=== PATIENT | male | born 1955 | race Caucasian/White ===

== ENCOUNTER 2019-05-14 11:59 | Emergency (ER) | payer OTHER ==
[~2019-05-14] VITALS: Ht 175.3 cm; Wt 90.7 kg
[~2019-05-14 11:59] MED LIST: ALPR.25 PO; ASPI81CH PO; ATOR80 PO; METO50ER PO; TICA90TA PO
[2019-05-14] MEDS ORDERED: CLON.1 PO (12:35)
[2019-05-14] MEDS ORDERED: LOSA25 PO (12:36)
[2019-05-14 12:40] LABS: BASOPHILS ABSOLUTE AUTO 0.04 K/mm3 (0.00-0.23); BASOPHILS PERCENT AUTO 1 % (0-2); EOSINOPHILS ABSOLUTE AUTO 0.05 K/mm3 (0.00-0.68); EOSINOPHILS PERCENT AUTO 1 % (0-6); Hematocrit 47.4 % (37.0-53.0); Hemoglobin 15.9 g/dL (13.5-17.5); IMMATURE GRAN ABSOLUTE AUTO 0.02 K/mm3 (0.00-0.10); IMMATURE GRAN PERCENT AUTO 0 % (0-1); LYMPHOCYTES ABSOLUTE AUTO 1.21 K/mm3 (0.84-5.20); LYMPHOCYTES PERCENT AUTO 14 % (21-46); MONOCYTES ABSOLUTE AUTO 0.47 K/mm3 (0.16-1.47); MONOCYTES PERCENT AUTO 5 % (4-13); Mean Corpuscular HGB 30.1 pg (26.0-34.0); Mean Corpuscular HGB Conc 33.5 g/dL (31.5-36.5); Mean Corpuscular Volume 90 fL (80-100); Mean Platelet Volume 10.6 fL (9.1-12.4); NEUTROPHILS ABSOLUTE AUTO 7.02 K/mm3 (1.96-9.15); NEUTROPHILS PERCENT AUTO 80 % (41-73); Platelet Count 246 K/mm3 (150-400); RDW Standard Deviation 45.7 fL (35.1-46.3); Red Blood Cell Count 5.29 M/mm3 (4.30-5.90); White Blood Cell Count 8.81 K/mm3 (4.00-11.30)
[2019-05-14 13:01] LABS: Alanine Aminotransfer (ALT/SGP 23 U/L (12-78); Albumin, Blood 4.2 g/dL (3.4-5.0); Albumin/Globulin Ratio 1.4 (0.8-1.8); Alk Phos 77 U/L (50-136); Anion Gap 5 mmol/L (6-16); Aspartate Aminotrans (AST/SGOT 14 U/L (12-37); Bilirubin, Total 0.9 mg/dL (0.1-1.0); Blood Urea Nitrogen 22 mg/dL (8-24); Bun/Creatinine Ratio 18.6 (12.0-20.0); CO2, Blood 22 mmol/L (21-32); Calcium, Blood 8.7 mg/dL (8.5-10.1); Chloride, Blood 111 mmol/L (98-108); Creatinine, Blood 1.18 mg/dL (0.60-1.20); Globulin, Blood 3.1 g/dL (2.2-4.0); Glomerular Filtration Rate >60 (60-); Glucose, Blood 134 mg/dL (70-99); Potassium, Blood 4.3 mmol/L (3.5-5.5); Sodium, Blood 138 mmol/L (136-145); Total Protein, Blood 7.3 g/dL (6.4-8.2)
[2019-05-14 13:02] LABS: Troponin I <0.015 ng/mL (0.000-0.040)
== END 2019-05-14 14:16 | disposition home or self-care (01) ==
LOC: ER 11:59
PROVIDERS: Physician Assistant
DX: I48.91 Unspecified atrial fibrillation (principal); Z79.899 Other long term (current) drug therapy; Z79.82 Long term (current) use of aspirin
CPT/HCPCS: 36415; 80053; 84443; 84484; 85025; 93005; 93010; 99284-25

== ENCOUNTER 2020-10-26 12:29 | Emergency (ER) | payer OTHER ==
[~2020-10-26] VITALS: Ht 175.3 cm; Wt 99.8 kg
[~2020-10-26 12:29] MED LIST changes: +CLON.1 PO; +LOSA25 PO
[2020-10-26] MEDS ORDERED: ELIQUIS5 M2 PO (12:43)
[2020-10-26] MEDS ORDERED: IRBESARTAN150 M2 PO (12:44)
[2020-10-26 12:48] LABS: BASOPHILS ABSOLUTE AUTO 0.02 K/mm3 (0.00-0.23); BASOPHILS PERCENT AUTO 0 % (0-2); EOSINOPHILS ABSOLUTE AUTO 0.03 K/mm3 (0.00-0.68); EOSINOPHILS PERCENT AUTO 0 % (0-6); Hematocrit 46.2 % (37.0-53.0); Hemoglobin 15.9 g/dL (13.5-17.5); IMMATURE GRAN ABSOLUTE AUTO 0.02 K/mm3 (0.00-0.10); IMMATURE GRAN PERCENT AUTO 0 % (0-1); LYMPHOCYTES ABSOLUTE AUTO 1.05 K/mm3 (0.84-5.20); LYMPHOCYTES PERCENT AUTO 13 % (21-46); MONOCYTES ABSOLUTE AUTO 0.46 K/mm3 (0.16-1.47); MONOCYTES PERCENT AUTO 6 % (4-13); Mean Corpuscular HGB 29.9 pg (26.0-34.0); Mean Corpuscular HGB Conc 34.4 g/dL (31.5-36.5); Mean Corpuscular Volume 87 fL (80-100); Mean Platelet Volume 10.6 fL (9.1-12.4); NEUTROPHILS PERCENT AUTO 81 % (41-73); Platelet Count 173 K/mm3 (150-400); RDW Coefficient Variation 13.2 % (11.7-14.2); RDW Standard Deviation 42.1 fL (35.1-46.3); Red Blood Cell Count 5.31 M/mm3 (4.30-5.90); White Blood Cell Count 8.08 K/mm3 (4.00-11.30)
[2020-10-26 13:03] LABS: Alanine Aminotransfer (ALT/SGP 19 U/L (12-78); Albumin/Globulin Ratio 1.2 (0.8-1.8); Alk Phos 66 U/L (50-136); Anion Gap 8 mmol/L (6-16); Aspartate Aminotrans (AST/SGOT 16 U/L (12-37); Bilirubin, Total 1.4 mg/dL (0.1-1.0); Blood Urea Nitrogen 19 mg/dL (8-24); CO2, Blood 21 mmol/L (21-32); Calcium, Blood 9.4 mg/dL (8.5-10.1); Chloride, Blood 111 mmol/L (98-108); Creatinine, Blood 1.19 mg/dL (0.60-1.20); Globulin, Blood 3.2 g/dL (2.2-4.0); Glomerular Filtration Rate >60 (60-); Glucose, Blood 161 mg/dL (70-99); Potassium, Blood 4.2 mmol/L (3.5-5.5); Sodium, Blood 140 mmol/L (136-145); Total Protein, Blood 7.2 g/dL (6.4-8.2); Troponin I <0.015 ng/mL (0.000-0.040)
== END 2020-10-26 17:04 | disposition home or self-care (01) ==
LOC: ER 12:29
PROVIDERS: Emergency Medicine
DX: I24.9 Acute ischemic heart disease, unspecified (principal); Z53.20 Procedure and treatment not carried out because of patient's decision for unspecified reasons; Z79.01 Long term (current) use of anticoagulants; Z79.899 Other long term (current) drug therapy
CPT/HCPCS: 36415; 71045; 80053; 83690; 84484; 85025; 93005; 93010; 99285-25

== ENCOUNTER 2020-10-28 18:17 | Inpatient (IN) | payer OTHER ==
[~2020-10-28] VITALS: Ht 175.3 cm; Wt 90.5 kg
[~2020-10-28 18:17] MED LIST changes: +ELIQUIS5 M2 PO; +IRBESARTAN150 M2 PO
--- NOTE | 2020-10-29 | NUR ---
PT ADMITTED TO ICU 7 AFTER BEING IN THE ED, HE HAD BEEN TO HIS PROVIDERS OFFICE AND RECOMMENDED HE COME HERE FOR [employer]. HE WAS CONTINUING TO TAKE HIS ELIQUIS AND SO THE PROCEDURE WILL NOT BE DONE UNTIL LATER IN THE AFTERNOON. PT AND WERE ORIENTED TO ROOM AND TO THE VISITING HOURS. THEY EXPRESSED THEIR DISPLEASURE WITH THE HOURS. HE ASKED TO BE TUCKED IN AND LIGHTS OFF SO HE COULD REST. PT WAS TOLD HE WOULD BE ABLE TO HAVE BREAKFAST, THEN HE WOULD BE NPO AFTER 1000. HE DENIES CHEST PAIN.
--- NOTE | 2020-10-29 06:13 | NUR ---
PT HAS BEEN INDEPENDENT IN ROOM, HE HAS BEEN QUIET AND SLEEPING T/O THE NIGHT. VSS, NO COMPLAINTS.
[2020-10-29 07:57] LABS: BASOPHILS ABSOLUTE AUTO 0.02 K/mm3 (0.00-0.23); BASOPHILS PERCENT AUTO 0 % (0-2); EOSINOPHILS ABSOLUTE AUTO 0.12 K/mm3 (0.00-0.68); EOSINOPHILS PERCENT AUTO 2 % (0-6); Hematocrit 44.9 % (37.0-53.0); Hemoglobin 15.4 g/dL (13.5-17.5); IMMATURE GRAN ABSOLUTE AUTO 0.01 K/mm3 (0.00-0.10); IMMATURE GRAN PERCENT AUTO 0 % (0-1); LYMPHOCYTES ABSOLUTE AUTO 1.47 K/mm3 (0.84-5.20); LYMPHOCYTES PERCENT AUTO 23 % (21-46); MONOCYTES ABSOLUTE AUTO 0.54 K/mm3 (0.16-1.47); MONOCYTES PERCENT AUTO 8 % (4-13); Mean Corpuscular HGB 30.7 pg (26.0-34.0); Mean Corpuscular HGB Conc 34.3 g/dL (31.5-36.5); Mean Corpuscular Volume 90 fL (80-100); Mean Platelet Volume 10.7 fL (9.1-12.4); NEUTROPHILS ABSOLUTE AUTO 4.28 K/mm3 (1.96-9.15); NEUTROPHILS PERCENT AUTO 66 % (41-73); Platelet Count 164 K/mm3 (150-400); RDW Coefficient Variation 13.2 % (11.7-14.2); RDW Standard Deviation 43.2 fL (35.1-46.3); Red Blood Cell Count 5.01 M/mm3 (4.30-5.90); White Blood Cell Count 6.44 K/mm3 (4.00-11.30)
--- NOTE | 2020-10-29 08:00 | NUR ---
INITIAL ASSESSMENT: DR. SALEEM AT BEDSIDE. PT IS AWAKE AND SITTING UP IN BED, ALERT AND ORIENTE. PT DENIES CP OR SOB AT THIS TIME. HRR, SRIN THE 60S PER MONITOR. VSS. LS CTA. BIOX WNL ON RA. BT+. PT GOT UP IND AND USED THE BATHROOM. AM MEDS GIVEN, BREAKFAST TRAY ORDERED, PT WILL BE NPO AT 10 AM. PT DENIES OTHER NEEDS AT THIS TIME, CALL LIGHT IN REACH. WILL CONTINUE TO MONITOR.
[2020-10-29 08:13] LABS: Anion Gap 9 mmol/L (6-16); Blood Urea Nitrogen 18 mg/dL (8-24); Bun/Creatinine Ratio 17.3 (12.0-20.0); CO2, Blood 25 mmol/L (21-32); Calcium, Blood 8.6 mg/dL (8.5-10.1); Chloride, Blood 107 mmol/L (98-108); Creatinine, Blood 1.04 mg/dL (0.60-1.20); Glomerular Filtration Rate >60 (60-); Glucose, Blood 116 mg/dL (70-99); Potassium, Blood 4.1 mmol/L (3.5-5.5); Sodium, Blood 141 mmol/L (136-145)
--- NOTE | 2020-10-29 11:38 | NUR ---
ASSESSMENT UNCHAGED. ECHO COMPLETE. PT IS RESTING COMFORTABLY IN BED AT THIS TIME. DENIES ADDITIONAL NEEDS. CALL LIGHT IN REACH.
--- NOTE | 2020-10-29 15:00 | NUR ---
REPORT GIVEN TO JORGE EDGAR RN. PT WILL BE GOING TO PCU 05. THE [facility] CALLED AND STATED THEY WOULD BE HERE TO GET THE PATIENT IN ABOUT 30 MIN. THE PATIENTS BLOOD PRESSURE IS HIGH, HE ADMITS THAT HE IS AGIGTATED RIGHT NOW. I WILL TRY STIMULI REDUCTION AND RE CHECK BP. AT BEDSIDE ATTENTIVE AND LOVING. PATIENT DENIES OTHER NEEDS AT THIS TIME, WILL CONTINUE TO MONITOR.
--- NOTE | 2020-10-29 15:30 | NUR ---
[facility] HERE TO GET THE PATIENT. PATIENT IS REFUSING TO WEAR A MASK IN THE [place] GOING DOWN TO THE [facility]. HE STATES," YOU CAN PUT A MASK ON ME WHEN I AM , I AM NOT WEARING AN FUCKING MASK." PT TO [facility] VIA BED AND THEN WILL BE TRANSFERRED TO PCU 05.
--- NOTE | 2020-10-29 19:42 | NUR ---
SHIFT SUMMARY: PT ARRIVES FROM HC APPROX 1715 W/RT RADIAL ACCESS SITE AND TR BAND IN PLACE. THREE FAMILY MEMBERS ARRIVE TO ROOM WITH PT, DR CORTES TO BEDSIDE TO DISCUSS PLAN OF CARE. OF NOW, PLAN IS TO TRANSFER PT TO HIGHER LEVEL OF CARE, LOCATION AND BED ASSIGNMENT ARE PENDING, PT COOPERATIVE AT THIS POINT. PT IS A&O, MAINTAINING O2 SATS >93% ON RA, AFIB IN 60s-70s. REMOVAL OF AIR FROM TR BAND HAS BEEN INITIATED, NO SIGNS OF BLEEDING, AREA REMAINS SOFT AND NONTENDER. REPORT HAS BEEN GIVEN TO MARKELL ELIZALDE TO ASSUME CARE OF PT.
--- NOTE | 2020-10-30 04:28 | NUR ---
SHIFT SUMMARY ASSUMED CARE OF PT AT 1900. PT IS A/OX4. HEART SOUNDS REGULAR, LUNG SOUNDS CLEAR. PT IS INDEPEDNET TO BATHROOM. PT TR BAND HAS BEEN REMOVED, THERE IS A SMALL BRUISE NEXT TO SITE, THERE IS NO FRESH BLOOD AROUND INCISION. PT C/O SORENESS BUT NO PAIN. PT C/O HEADACHE, MEDICATED PER EMAR. CALL LIGHT IN REACH, BED IN LOWEST POSTION.
[2020-10-30 05:21] LABS: BASOPHILS ABSOLUTE AUTO 0.03 K/mm3 (0.00-0.23); BASOPHILS PERCENT AUTO 0 % (0-2); EOSINOPHILS ABSOLUTE AUTO 0.14 K/mm3 (0.00-0.68); EOSINOPHILS PERCENT AUTO 2 % (0-6); Hematocrit 44.1 % (37.0-53.0); IMMATURE GRAN ABSOLUTE AUTO 0.01 K/mm3 (0.00-0.10); IMMATURE GRAN PERCENT AUTO 0 % (0-1); LYMPHOCYTES ABSOLUTE AUTO 1.24 K/mm3 (0.84-5.20); LYMPHOCYTES PERCENT AUTO 18 % (21-46); MONOCYTES ABSOLUTE AUTO 0.49 K/mm3 (0.16-1.47); MONOCYTES PERCENT AUTO 7 % (4-13); Mean Corpuscular HGB 30.4 pg (26.0-34.0); Mean Corpuscular Volume 89 fL (80-100); Mean Platelet Volume 10.9 fL (9.1-12.4); NEUTROPHILS ABSOLUTE AUTO 4.89 K/mm3 (1.96-9.15); NEUTROPHILS PERCENT AUTO 72 % (41-73); Platelet Count 156 K/mm3 (150-400); RDW Coefficient Variation 13.3 % (11.7-14.2); RDW Standard Deviation 43.5 fL (35.1-46.3); Red Blood Cell Count 4.94 M/mm3 (4.30-5.90)
[2020-10-30 05:50] LABS: Anion Gap 7 mmol/L (6-16); Blood Urea Nitrogen 15 mg/dL (8-24); Bun/Creatinine Ratio 14.9 (12.0-20.0); CO2, Blood 26 mmol/L (21-32); Calcium, Blood 8.1 mg/dL (8.5-10.1); Chloride, Blood 107 mmol/L (98-108); Creatinine, Blood 1.01 mg/dL (0.60-1.20); Glomerular Filtration Rate >60 (60-); Glucose, Blood 111 mg/dL (70-99); Sodium, Blood 140 mmol/L (136-145)
[2020-10-30 07:17] LABS: CHOL/HDL RATIO 4.9; Cholesterol 165 mg/dL (50-200); HDL Cholesterol 34 mg/dL (>39); LDL/HDL RATIO 2.6; Low Density Lipoprotein Chol 88 mg/dL (0-110); Triglycerides 216 mg/dL (30-160); Very Low Density Lipoprot Chol 43 mg/dL (6-32)
--- NOTE | 2020-10-30 07:51 | NUR ---
Bedside report received around 7 am. Pt appears agitated, states that he just wants to leave the hospital, voices skepticism that he will actually have the transfer to [place] for CABG today and states he might just leave. Explained that most likely he will be transferred today. Dr. Ortega will be the receiving cardiovascular surgeon. Dr. Ozuna and Dr. Henderson here right now, rounding on the patient. Pt denies chest pain, difficulty breathing. Vital signs noted, and morning medications given at this time. Pt seems agitated, which (at bedside) also concurs with, and pt states that he doesn't feel well informed. States that he wants to have a shower this morning. PCT assisting patient with that .
--- NOTE | 2020-10-30 08:06 | NUR ---
Dr. Henderson here; pt getting in shower, so he will round on the pt later.
--- NOTE | 2020-10-30 10:15 | NUR ---
Pt was given fish oil as ordered, states he will take this one but doesn't want any others since he has so much at home already and doesn't want the extra charge while in hospital. Vital signs rechecked also as blood pressure was high this morning prior to administration of antihypertensives. PT states, " I don't know why you all keep rechecking my blood pressure when it's high because if you just look at the record you can see that it comes back down again." No statements about wanting to leave. He seems to be patiently waiting the transfer, hoped for by this evening.
--- NOTE | 2020-10-30 13:38 | NUR ---
Requested xanax, which he states he doesn't usually take at home, but tried a few years ago and it was helpful for him. Ordered by the attending resident, and administered to the patient at this time. Pt is sitting up in bed, on his phone, and talking with his who is at the bedside. room is darkened, blinds are closed and door closed,per pt request.
--- NOTE | 2020-10-30 14:44 | NUR ---
Pt lying in bed, talking and texting on his phone, at the bedside. PT states that the xanax was helpful. Vital signs taken, pt in denial that they are correct; states that the hospital needs to get new monitors. Call from a heart center staff member that pt's daughter reached out to her on social media to try to get information/advice on the pt's condition and treatment. Heart center staff member not appreciative of the apparent attempt to breach confidentiality. Encouraged staff member to set firm boundaries. Still waiting on the transfer center to advise of room availability.
--- NOTE | 2020-10-30 18:28 | NUR ---
Pt has denied chest pain, dyspnea throughout the shift. NO ectopy noted on telemetry. Vital signs variable, pt also experiencing some anxiety which he said was somewhat relieved by xanax. has been at the bedside for most of the day. Still waiting for bed available at [facility].
--- NOTE | 2020-10-30 21:57 | NUR ---
PATIENT ALERT AND ORIENTED X4. 02 SATS >95% ON RA. DENIES CP/PRESSURE. INDEPENDENT IN ROOM/FAMILY ASSISTING PATIENT. COMPLAINS OF CHRONIC LEFT KNEE PAIN. RIGHT RADIAL SITE WNL, TEGADERM IN PLACE C/D/I. PT BECOMES EASILY AGITATED ABOUT POSSIBLE PROCEDURES. CALLED REPORT TO NICOLASA GUILLAUME AT [facility] HERE TO TRANSFER PATIENT. PT LEFT @0913.
== END 2020-10-30 21:07 | disposition short-term general hospital (02) | DRG 287 ==
LOC: ER 18:17 → ERHOLD 18:18 → ICUE 18:18 → PCU 10-29 16:10
PROVIDERS: Family Medicine; Internal Medicine Cardiovascular Disease; ADMIT Hospitalist
PROC: 4A023N7 Measurement of Cardiac Sampling and Pressure, Left Heart, Percutaneous Approach (ICD-10-PCS; principal; 2020-10-29)
PROC: B2111ZZ Fluoroscopy of Multiple Coronary Arteries using Low Osmolar Contrast (ICD-10-PCS; 2020-10-29)
DX: T82.855A Stenosis of coronary artery stent, initial encounter (principal); I25.110 Atherosclerotic heart disease of native coronary artery with unstable angina pectoris; I48.91 Unspecified atrial fibrillation; I10 Essential (primary) hypertension; Z90.49 Acquired absence of other specified parts of digestive tract; Z79.899 Other long term (current) drug therapy; I25.10 Atherosclerotic heart disease of native coronary artery without angina pectoris; Z95.5 Presence of coronary angioplasty implant and graft
CPT/HCPCS: 36415; 76937; 80048; 80061; 83036; 84484; 85025; 85347; 93306; 93454; 99152; 99153; 99284; A9270; C1769; C1887; C1894; G0378; J1644; J2250; J2405; J3010; J7030; J7050; Q9967

== ENCOUNTER 2022-03-22 03:01 | Inpatient (IN) | payer OTHER ==
[~2022-03-22] VITALS: Ht 175.3 cm; Wt 92.5 kg
[2022-03-22 03:34] LABS: BASOPHILS ABSOLUTE AUTO 0.04 K/mm3 (0.00-0.23); BASOPHILS PERCENT AUTO 1 % (0-2); EOSINOPHILS ABSOLUTE AUTO 0.15 K/mm3 (0.00-0.68); EOSINOPHILS PERCENT AUTO 2 % (0-6); Hematocrit 41.4 % (37.0-53.0); Hemoglobin 14.5 g/dL (13.5-17.5); IMMATURE GRAN ABSOLUTE AUTO 0.05 K/mm3 (0.00-0.10); IMMATURE GRAN PERCENT AUTO 1 % (0-1); LYMPHOCYTES ABSOLUTE AUTO 1.33 K/mm3 (0.84-5.20); LYMPHOCYTES PERCENT AUTO 16 % (21-46); MONOCYTES ABSOLUTE AUTO 0.63 K/mm3 (0.16-1.47); MONOCYTES PERCENT AUTO 8 % (4-13); Mean Corpuscular HGB 31.2 pg (26.0-34.0); Mean Corpuscular Volume 89 fL (80-100); NEUTROPHILS ABSOLUTE AUTO 6.05 K/mm3 (1.96-9.15); NEUTROPHILS PERCENT AUTO 73 % (41-73); Platelet Count 161 K/mm3 (150-400); RDW Coefficient Variation 13.5 % (11.7-14.2); RDW Standard Deviation 44.3 fL (35.1-46.3); Red Blood Cell Count 4.65 M/mm3 (4.30-5.90); White Blood Cell Count 8.25 K/mm3 (4.00-11.30)
[2022-03-22 03:43] LABS: Bun/Creatinine Ratio 19.2 (12.0-20.0); Calcium, Blood 8.6 mg/dL (8.5-10.1); Creatinine, Blood 0.89 mg/dL (0.60-1.20); Potassium, Blood 4.2 mmol/L (3.5-5.5)
[2022-03-22 05:54] LABS: Anti-Xa UFH, PHA Monitoring 0.84 IU/mL; International Normalized Ratio 1.04; Prothrombin Time Results 10.9 Sec (9.7-11.5)
--- NOTE | 2022-03-22 17:20 | NUR ---
SHIFT SUMMARY PT HAS BEEN RESTING IN BED SINCE ARRIVAL. PT HAS AMBULATED TO RESTROOM MULTIPLE TIMES. PT HAS REFUSED BLOOD SUGAR CHECKS AND INSULIN STATING "I DON'T HAVE DIABETES." PT HAS QUESTIONED ALL PROVIDER ORDERS AND MEDICATIONS AND PRESENTS WITH AN ALMOST PARANOID STANCE TOWARD CARE. FAMILY MEMBERS ARRIVED TO SEE PT IMMEDIATELY AFTER ARRIVAL AND BROUGHT IN A FAST FOOD MEAL FOR THE PT. THIS RN ATTEMPTED TO EDUCATE THE PT AND FAMILY ON HEART HEALTHY FOOD CHOICES. BLOOD PRESSURE HAS BEEN HIGH, 174-160 SBP. PT DENIED C/O PAIN OR DISCOMFORT.
--- NOTE | 2022-03-22 22:47 | NUR ---
CARE ASSUMPTION: VERIFIED HEPARIN GTT WITH OFF-GOING RN. VS WNL ON RA. DENIES CHEST PAIN/N/V/D OR OTHER DISCOMFORT. MEDICATED PER EMAR. PATIENT GIVEN TRAY BUT STATED IT WAS "INEDIBLE." OFFERED OTHER PO BUT REFUSED AT THIS TIME. BED LOW WITH CALL LIGHT IN PLACE.
--- NOTE | 2022-03-23 01:36 | NUR ---
CALL TO MD: TROPONIN INCREASED TO [address] AND [address]ET PE[address]. [address] SIERRA TO ORDER REPEAT TROPONINS OTHERWISE CONTINUE WITH CURRENT TREATMENT PLAN. PATIENT DENIES CHEST PAIN/N/V OR OTHER DISCOMFORT.
[2022-03-23 01:44] LABS: Albumin, Blood 3.1 g/dL (3.4-5.0); Albumin/Globulin Ratio 1.1 (0.8-1.8); Bilirubin, Total 0.8 mg/dL (0.1-1.0); Bun/Creatinine Ratio 17.3 (12.0-20.0); Calcium, Blood 8.6 mg/dL (8.5-10.1); Creatinine, Blood 0.87 mg/dL (0.60-1.20); Globulin, Blood 2.7 g/dL (2.2-4.0); Potassium, Blood 4.1 mmol/L (3.5-5.5); Total Protein, Blood 5.8 g/dL (6.4-8.2)
[2022-03-23 01:50] LABS: BASOPHILS ABSOLUTE AUTO 0.03 K/mm3 (0.00-0.23); BASOPHILS PERCENT AUTO 0 % (0-2); EOSINOPHILS ABSOLUTE AUTO 0.19 K/mm3 (0.00-0.68); EOSINOPHILS PERCENT AUTO 3 % (0-6); Hematocrit 40.7 % (37.0-53.0); IMMATURE GRAN ABSOLUTE AUTO 0.05 K/mm3 (0.00-0.10); IMMATURE GRAN PERCENT AUTO 1 % (0-1); LYMPHOCYTES ABSOLUTE AUTO 1.57 K/mm3 (0.84-5.20); LYMPHOCYTES PERCENT AUTO 21 % (21-46); MONOCYTES ABSOLUTE AUTO 0.52 K/mm3 (0.16-1.47); MONOCYTES PERCENT AUTO 7 % (4-13); Mean Corpuscular HGB 30.6 pg (26.0-34.0); Mean Corpuscular HGB Conc 34.4 g/dL (31.5-36.5); Mean Corpuscular Volume 89 fL (80-100); Mean Platelet Volume 10.8 fL (9.1-12.4); NEUTROPHILS ABSOLUTE AUTO 5.14 K/mm3 (1.96-9.15); NEUTROPHILS PERCENT AUTO 69 % (41-73); Platelet Count 165 K/mm3 (150-400); RDW Coefficient Variation 13.8 % (11.7-14.2); RDW Standard Deviation 44.6 fL (35.1-46.3); Red Blood Cell Count 4.57 M/mm3 (4.30-5.90)
--- NOTE | 2022-03-23 05:20 | NUR ---
SHIFT SUMMARY: PATIENT DENIES CHEST PAIN/N/V, INDEPENDENT IN ROOM TO TOILET, VS WNL ON RA. HEPARIN RUNNING PER EMAR; MEDICATED PER EMAR. NPO SINCE MIDNIGHT. PATIENT ANXIOUS AT TIMES BUT OTHERWISE HAS BEEN PLEASANT AND COOPERATIVE WITH CARE. PATIENT HAD 3 LAB DRAWS DURING SHIFT D/T ADD-ON TROPONIN AFTER 0100 LAB WITH AM LABS WERE DRAWN AND WAS FRUSTRATED WITH THAT. PATIENT ALERTED HE WOULD HAVE ANOTHER DRAW AT 0800. BED LOW WITH CALL LIGHT IN REACH. PATIENT HAS DENIED NEEDS DURING ROUNDING AND HAS NOT USED CALL LIGHT THIS SHIFT. WILL CONTINUE TO MONITOR UNTIL REPORT TO DAY RN.
--- NOTE | 2022-03-23 21:29 | NUR ---
CARE ASSUMPTION: PATIENT POST-ANGIO SITE C/D/I. NO SWELLING OR INFLAMMATION, PATIENT DENIES TENDERNESS OR DISCOMFORT. VS WNL ON RA. DENIES CHEST PAIN/SOB/N/V/D. COMPLIANT WITH ANGIO RECOVERY PLAN. BED LOW WITH CALL LIGHT IN REACH.
--- NOTE | 2022-03-24 00:51 | NUR ---
PATIENT UP TO TOILET UNASSISTED ~2100. AID WENT INTO ROOM PATIENT WAS RETURNING TO BED AND NOTIFIED THIS RN. THIS RN ASSESSED PATIENT'S ANGIO SITE. ANGIO SITE C/D/I WITH NO SWELLING OR TENDERNESS. EDUCATED PATIENT ON IMPORTANCE OF CALLING FOR ASSISTANCE POST-SURGERY. PATIENT HAS BEEN ASLEEP IN BED SINCE 2200 EXCEPT FOR MIDNIGHT VS.
--- NOTE | 2022-03-24 06:02 | NUR ---
SHIFT SUMMARY: PATIENT A&O X4, VS WNL, ANGIO SITE C/D/I AND WNL. PATIENT DENIES SOB OR CHEST PAIN AND IS LOOKING FORWARD TO D/C TODAY. MEDICATED PER EMAR. NO ADVERSE EVENTS THIS SHIFT. BED LOW WITH CALL LIGHT IN REACH. WILL CONTINUE TO MONITOR UNTIL REPORT TO DAY RN.
[2022-03-24] MEDS ORDERED: ASPI81CH PO (10:17)
[2022-03-24] MEDS ORDERED: ATOR80 PO (10:17)
[2022-03-24] MEDS ORDERED: CLOP75 PO (10:18)
[2022-03-24] MEDS ORDERED: Isosorbide Mono30 MG PO (10:19)
--- NOTE | 2022-03-24 10:47 | NUR ---
DISCHARGE SUMMARY PT WAS TRANSPORETED BY WHEELCHAIR TO PERSONAL VEHICLE. ALL PERSONAL BELONGINGS AND DISCHARGE INSTRUCTIONS WERE IN THE PT'S POSSESSION AT THE TIME OF DISCHARGE. PT STATED THAT THEY HAD NO QUESTIONS OR CONCERNS AND REFUSED DISCHARGE EDUCATION BEYOND CARDIOLOGY FOLLOW-UP.
== END 2022-03-24 10:38 | disposition home or self-care (01) | DRG 281 ==
LOC: ER 03:01 → ERHOLD 03:02 → PCU 03:02
PROVIDERS: Student in an Organized Health Care Education/Training Program; ADMIT Internal Medicine
PROC: B211YZZ Fluoroscopy of Multiple Coronary Arteries using Other Contrast (ICD-10-PCS; principal; 2022-03-23)
DX: I25.119 Atherosclerotic heart disease of native coronary artery with unspecified angina pectoris (principal); I21.A1 Myocardial infarction type 2; I48.20 Chronic atrial fibrillation, unspecified; I10 Essential (primary) hypertension; E78.5 Hyperlipidemia, unspecified; E66.9 Obesity, unspecified; Z96.651 Presence of right artificial knee joint; Z95.5 Presence of coronary angioplasty implant and graft; Z68.28 Body mass index [BMI] 28.0-28.9, adult; Z86.79 Personal history of other diseases of the circulatory system; Z79.01 Long term (current) use of anticoagulants; Z79.899 Other long term (current) drug therapy; Z90.49 Acquired absence of other specified parts of digestive tract; Z87.891 Personal history of nicotine dependence
CPT/HCPCS: 36415; 71045; 76937; 80048; 80053; 82947; 84484; 85025; 85520; 85610; 85730; 93005; 93010; 93306; 93454; 96376; 99152; 99153; A9270; C1769; C1894; G0378; J0360; J1644; J2250; J3010; J7030; J7040; Q9967